=== PATIENT | male | born 1965 | race Caucasian/White ===

== ENCOUNTER → 2019-02-03 | Outpatient (CLI) | payer OTHER ==
[~2019-02-03] MED LIST: ALBUTEROL SULFATE 2.5 MG/3 ML NEBU. NEB ONE
== END | disposition home or self-care (01) ==
LOC: PF 07:50
PROVIDERS: ATTEND Surgery
DX: E11.21 Type 2 diabetes mellitus with diabetic nephropathy (principal); I10 Essential (primary) hypertension; E03.9 Hypothyroidism, unspecified; E78.00 Pure hypercholesterolemia, unspecified; F19.10 Other psychoactive substance abuse, uncomplicated
CPT/HCPCS: 94060; 94640; 94729; J7613